=== PATIENT | male | born 2005 ===

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

== ENCOUNTER 2023-04-27 12:50 | Outpatient (CLI) | payer OTHER ==
[~2023-04-27 12:50] MED LIST: PROTONIX40 MG PO
== END 2023-04-27 13:03 | disposition home or self-care (01) ==
LOC: MAMO-SONO 12:50
PROVIDERS: ATTEND Pediatrics
DX: N63.20 Unspecified lump in the left breast, unspecified quadrant (principal)